=== PATIENT | female | born 1965 | race Caucasian/White ===

== ENCOUNTER 2016-12-05 06:24 | Outpatient (CLI) | payer OTHER ==
[~2016-12-05] VITALS: Ht 172.7 cm; Wt 77.3 kg
[2016-12-05 07:55] VITALS: Ht 172.7 cm; Wt 77.3 kg
[2016-12-05 08:05] LABS: BASOPHILS 0.5 % (0-2); EOSINOPHILS 3.2 % (0-7); HEMATOCRIT 36.9 % (36.0-48.0); HEMOGLOBIN 12.3 g/dL (12-16); LYMPHOCYTES 40.3 % (15-50); MCH 30.4 pg (26.0-34.0); MCHC 33.3 g/dL (31.0-37.0); MCV 91.1 fL (80.0-100.0); MEAN PLATELET VOLUME 9.3 fL (7.4-10.4); PLATELET COUNT 207 10x3/uL (130-400); RBC 4.05 10x6/uL (4.00-5.40); WBC 4.1 10x3/uL (4.8-10.8)
[2016-12-05] MEDS ORDERED: INDERAL10 MG PO (08:07)
[2016-12-05] MEDS ORDERED: MELOXICAM TAB 15M (08:08)
[2016-12-05 08:15] LABS: APTT 28.7 SECONDS (22.8-39.4); INR 0.92 (0.85-1.17); PROTIME 12.2 SECONDS (11.6-15.0)
[2016-12-05 08:18] LABS: CALC OSMOLALITY 280 mosm/kg (275-300); CALCIUM 8.9 mg/dL (8.5-10.1); CARBON DIOXIDE 26.4 mmol/L (21.0-32.0); CHLORIDE - SERUM 106 mmol/L (98-107); CREATININE - SERUM 0.7 mg/dL (0.6-1.3); GLUCOSE 92 mg/dL (74-106); POTASSIUM - SERUM 4.3 mmol/L (3.5-5.1); SODIUM 140 mmol/L (136-145); UREA NITROGEN 17 mg/dL (7-18); eGFR NON AFRICAN AMERICAN > 90 mL/min (90-120)
== END 2016-12-05 13:59 | disposition home or self-care (01) ==
LOC: D.OPS 06:24
PROVIDERS: Specialist
DX: K74.0 Hepatic fibrosis (principal); B18.2 Chronic viral hepatitis C; E88.9 Metabolic disorder, unspecified; R79.89 Other specified abnormal findings of blood chemistry; Z01.812 Encounter for preprocedural laboratory examination

== ENCOUNTER 2016-12-05 19:25 | Emergency (ER) | payer OTHER ==
[2016-12-05 07:55] VITALS: BMI 25.9
[~2016-12-05 19:25] MED LIST: INDERAL10 MG PO; MELOXICAM TAB 15M
[2016-12-05 20:37] LABS: BASOPHILS 0.5 % (0-2); EOSINOPHILS 2.8 % (0-7); HEMATOCRIT 36.4 % (36.0-48.0); HEMOGLOBIN 11.9 g/dL (12-16); LYMPHOCYTES 35.1 % (15-50); MCH 30.2 pg (26.0-34.0); MCHC 32.7 g/dL (31.0-37.0); MCV 92.4 fL (80.0-100.0); MEAN PLATELET VOLUME 9.3 fL (7.4-10.4); NEUTROPHILS 52.6 % (40-80); PLATELET COUNT 231 10x3/uL (130-400); RBC 3.94 10x6/uL (4.00-5.40); WBC 6.1 10x3/uL (4.8-10.8)
[2016-12-05 21:03] LABS: ALBUMIN 3.5 g/dL (3.4-5.0); ANION GAP 10.6 mmol/L (8-16); BILIRUBIN - TOTAL 0.1 mg/dL (0.2-1.3); CALCIUM 8.8 mg/dL (8.5-10.1); CARBON DIOXIDE 28.7 mmol/L (21.0-32.0); CREATININE - SERUM 1.2 mg/dL (0.6-1.3); POTASSIUM - SERUM 4.3 mmol/L (3.5-5.1)
== END 2016-12-05 21:40 | disposition home or self-care (01) ==
LOC: D.ER 19:25
PROVIDERS: Emergency Medicine
DX: R06.00 Dyspnea, unspecified (principal); Z98.890 Other specified postprocedural states; F17.200 Nicotine dependence, unspecified, uncomplicated

== ENCOUNTER → 2017-01-30 10:45 | Outpatient (CLI) | payer OTHER | END | disposition home or self-care (01) | LOC: D.MRI 10:45 | DX: M75.122 Complete rotator cuff tear or rupture of left shoulder, not specified as traumatic (principal) ==

== ENCOUNTER 2017-06-15 14:50 | Emergency (ER) | payer OTHER | END 2017-06-15 16:55 | disposition home or self-care (01) | LOC: D.ER 14:50 | DX: S39.012A Strain of muscle, fascia and tendon of lower back, initial encounter (principal); X58.XXXA Exposure to other specified factors, initial encounter; Y93.89 Activity, other specified; Y92.89 Other specified places as the place of occurrence of the external cause; M54.31 Sciatica, right side ==

== ENCOUNTER 2017-06-21 14:17 | Emergency (ER) | payer OTHER | END 2017-06-21 17:22 | disposition home or self-care (01) | LOC: D.ER 14:17 | DX: M54.5 Low back pain (principal); M54.30 Sciatica, unspecified side; I10 Essential (primary) hypertension ==

== ENCOUNTER 2020-01-04 13:33 | Emergency (ER) | payer MEDICAID ==
[2019-05-02 15:51] VITALS: BMI 25.9
[~2020-01-04 13:33] MED LIST changes: +FLAGYL500 MG PO; +LEVOFLOXACIN500 MG PO; +LISINOPRIL10 MG PO; +PAMELOR 25 MG C25 MG PO
== END 2020-01-04 14:26 | disposition left against medical advice (07) ==
LOC: D.ER 13:33
DX: R06.02 Shortness of breath (principal); R07.81 Pleurodynia; M54.2 Cervicalgia; M54.9 Dorsalgia, unspecified

== ENCOUNTER 2020-05-18 21:02 | Emergency (ER) | payer MEDICAID ==
[~2020-05-18] VITALS: Ht 172.7 cm; Wt 81.8 kg
[2020-05-18 21:05] VITALS: BP 158/67; Ht 172.7 cm; Wt 81.8 kg
[2020-05-18] MEDS ORDERED: NEURONTIN 300300 MG PO (21:07)
[2020-05-18] MEDS ORDERED: ULTRAM50 MG PO (21:07)
== END 2020-05-18 21:20 | disposition left against medical advice (07) ==
LOC: D.ER 21:02
DX: R07.9 Chest pain, unspecified (principal)